=== PATIENT | male | born 1960 | race Two or more races ===

== ENCOUNTER 2021-03-11 09:08 | Day surgery (SDC) | payer MEDICAID, SELFPAY ==
[2021-03-11 11:27] VITALS: BP 173/109; PULSE 74; RESP 18; TEMP 36.4; O2SAT 99; BMI 30.5
[2021-03-11 12:50] VITALS: BP 161/102; PULSE 67; RESP 16; O2SAT 97
[2021-03-11 12:55] VITALS: BP 161/102; PULSE 67; RESP 16; O2SAT 97
== END 2021-03-11 12:55 | disposition home or self-care (01) ==
PROVIDERS: PCP Nurse Practitioner Family; Visit Provider Ophthalmology
PROC: (CPT 66821; principal; 2021-03-11 09:30)
DX: H26.492 Other secondary cataract, left eye (principal); Z96.1 Presence of intraocular lens; I10 Essential (primary) hypertension; I25.10 Atherosclerotic heart disease of native coronary artery without angina pectoris; Z95.818 Presence of other cardiac implants and grafts; Z79.82 Long term (current) use of aspirin; Z79.899 Other long term (current) drug therapy
CPT/HCPCS: 66821; U0003

== ENCOUNTER → 2021-08-26 14:37 | Outpatient (CLI) | payer MEDICAID, SELFPAY ==
[2021-08-26 15:09] LABS: Alanine Aminotransferase 26 U/L (12-78); Albumin Level 4.5 g/dl (3.5-5.0); Albumin/Globulin Ratio 1.5 (1.1-1.8); Alkaline Phosphatase 92 U/L (38-126); Aspartate Amino Transferase 35 U/L (17-59); Basophils % 0.6 % (0.1-2.0); Bilirubin,Total 0.6 mg/dl (0.2-1.3); Blood Urea Nitrogen 10 mg/dl (9-20); Calcium 9.2 mg/dl (8.4-10.2); Carbon Dioxide 25 mmol/L (22.0-30.0); Chloride 106 mmol/L (98-107); Chol/HDL Ratio 3.8 (1-3.5); Cholesterol 169 mg/dl (140-200); Eosinophils # 0.7 K/mm3 (0.0-0.4); Eosinophils % 13.2 % (0.1-12.0); Estimated Glomerular Filt Rate 115 ml/min (>60); GFR (African American) 139 ML/MIN (>60); Globulin 3.1 g/dL (1.3-3.2); Glucose 117 mg/dl (74-100); HDL Cholesterol 44 mg/dl (40-60); Hematocrit 45.8 % (42.0-52.0); Hemoglobin 15.7 g/dL (14.1-18.0); Lymphocytes # 1.3 K/mm3 (0.7-4.5); Mean Corpuscular HGB Conc 34.2 g/dL (31.8-35.4); Mean Corpuscular Hemoglobin 31.8 pg (27.0-31.2); Mean Platelet Volume 8.6 fl (7.4-10.4); Monocytes # 0.3 K/mm3 (0.1-1.0); Monocytes % 6.4 % (1.7-9.3); Neutrophils % 54.9 % (37.0-80.0); Platelet Count 287 K/mm3 (142-424); Red Blood Count 4.92 M/mm3 (4.60-6.20); Red Cell Distribution Width 13.1 % (11.5-17.5); Sodium 138 mmol/L (136-145); Total Protein,Serum 7.6 g/dl (6.3-8.2); Triglycerides 146 mg/dl (30-150); VLDL Cholesterol 29 mg/dL (0-40); White Blood Count 5.4 K/mm3 (4.8-10.8)
[2021-08-26 15:15] LABS: Direct LDL Cholesterol 98.43 mg/dL (100-129)
[2021-08-26 15:35] LABS: Prostate Specific Ag Screen 0.5 ng/ml (0.0-4.0); Thyroid Stimulating Hormone 0.61 uIU/mL (0.465-4.68)
== END ==
PROVIDERS: Visit Provider Family Medicine
DX: E03.9 Hypothyroidism, unspecified (principal); I25.10 Atherosclerotic heart disease of native coronary artery without angina pectoris
CPT/HCPCS: 80053; 80061; 84443; 85025; G0103

== ENCOUNTER 2023-10-22 22:58 | Outpatient (CLI) | payer MEDICAID, SELFPAY ==
[2023-10-22 18:09] LABS: Alanine Aminotransferase 30 U/L (12-78); Albumin Level 4.2 g/dl (3.5-5.0); Albumin/Globulin Ratio 1.4 (1.1-1.8); Alkaline Phosphatase 89 U/L (38-126); Amylase 81 U/L (30-110); Anion Gap 14.1 mEq/L (5-15); Aspartate Amino Transferase 29 U/L (17-59); Bilirubin,Direct 0.1 mg/dl (0.0-0.4); Bilirubin,Indirect 0.4 mg/dL (0.0-0.9); Bilirubin,Total 0.5 mg/dl (0.2-1.3); Bilirubin,Unconjugated 0.4 mg/dL (0.0-1.1); Blood Urea Nitrogen 12 mg/dl (9-20); Calcium 9.1 mg/dl (8.4-10.2); Carbon Dioxide 23 mmol/L (22.0-30.0); Chloride 105 mmol/L (98-107); Chol/HDL Ratio 4.8 (1-3.5); Cholesterol 174 mg/dl (140-200); Estimated Glomerular Filt Rate 98 ml/min (>60); GFR (African American) 118 ML/MIN (>60); Globulin 3.1 g/dL (1.3-3.2); Glucose 136 mg/dl (74-100); HDL Cholesterol 36 mg/dl (40-60); Lipase 129 U/L (23-300); Potassium 4.1 mmoL/L (3.5-5.1); Sodium 138 mmol/L (136-145); Total Protein,Serum 7.3 g/dl (6.3-8.2); Triglycerides 276 mg/dl (30-150); VLDL Cholesterol 55 mg/dL (0-40)
[2023-10-22 18:14] LABS: Basophils # 0.1 K/mm3 (0-0.2); Basophils % 0.8 % (0.1-2.0); Eosinophils # 0.8 K/mm3 (0.0-0.4); Eosinophils % 12.6 % (0.1-12.0); Lymphocytes # 1.6 K/mm3 (0.7-4.5); Mean Corpuscular HGB Conc 34.8 g/dL (31.8-35.4); Mean Corpuscular Hemoglobin 32.2 pg (27.0-31.2); Mean Corpuscular Volume 92.5 fl (80-94); Mean Platelet Volume 8.1 fl (7.4-10.4); Monocytes # 0.6 K/mm3 (0.1-1.0); Monocytes % 8.5 % (1.7-9.3); Neutrophils # 3.4 K/mm3 (1.8-7.8); Neutrophils % 53.1 % (37.0-80.0); Platelet Count 259 K/mm3 (142-424); Red Blood Count 4.98 M/mm3 (4.60-6.20); White Blood Count 6.4 K/mm3 (4.8-10.8)
[2023-10-22 18:20] LABS: Direct LDL Cholesterol 96.89 mg/dL (100-129)
[2023-10-22 18:25] LABS: 25-OH Vitamin D, Total 14.6 ng/mL (30-100)
[2023-10-22 18:35] LABS: Hemoglobin A1C 5.3 % (4.0-6.0)
[2023-10-22 18:40] LABS: Prostate Specific Ag Screen 0.8 ng/ml (0.0-4.0)
[2023-10-22 19:16] LABS: Vitamin B12 547 pg/mL (239-931)
[2023-10-22 19:17] LABS: Folate 7.38 ng/mL
[2023-10-28 00:09] LABS: Vitamin B1 154.7 nmol/L (66.5-200.0)
== END 2023-10-22 23:59 ==
LOC: LAB.DROPOF 22:59
PROVIDERS: PCP Family Medicine; Visit Provider Family Medicine
DX: R10.11 Right upper quadrant pain; R10.9 Unspecified abdominal pain; R14.0 Abdominal distension (gaseous); E55.9 Vitamin D deficiency, unspecified; K21.9 Gastro-esophageal reflux disease without esophagitis; E66.3 Overweight; Z68.27 Body mass index [BMI] 27.0-27.9, adult; Z79.899 Other long term (current) drug therapy; Z12.5 Encounter for screening for malignant neoplasm of prostate
CPT/HCPCS: 80053; 80061; 80076; 82150; 82306; 82607; 82746; 83036; 83690; 84425; 84443; 85025; G0103

== ENCOUNTER 2023-11-03 08:04 | Outpatient (CLI) | payer MEDICAID, SELFPAY ==
--- NOTE | 2023-11-03 08:04 | US_ITS ---
FINAL REPORT CLINICAL HISTORY: right side pain, pain after eatting greasy foods FINDINGS: RIGHT UPPER QUADRANT ULTRASOUND Sonographic images of the right upper quadrant were obtained. The pancreas is partially obscured. There is fatty infiltration of the liver. The gallbladder is partially collapsed without evidence of stones. The common duct measures 2 mm. Limited images of the right kidney are normal. IMPRESSION: Fatty liver. Partially collapsed gallbladder without evidence of stones. Reviewed, Interpreted and Dictated by Julian Villarreal III, MD Transcribed by Lianna Limon Authenticated and [facility]
== END 2023-11-03 23:59 ==
LOC: RAD 08:04
PROVIDERS: PCP Family Medicine; Visit Provider Family Medicine
DX: R10.11 Right upper quadrant pain (principal); R10.9 Unspecified abdominal pain
CPT/HCPCS: 76705

== ENCOUNTER 2024-03-20 10:11 | Outpatient (CLI) | payer MEDICAID, SELFPAY ==
[2024-03-20 11:57] LABS: Prostate Specific Ag, Diagnost 1.07 ng/ml (0.0-4.0)
== END 2024-03-20 23:59 | disposition home or self-care (01) ==
LOC: LAB 10:13
PROVIDERS: PCP Family Medicine; Visit Provider Family Medicine
DX: R39.198 Other difficulties with micturition (principal); R35.1 Nocturia
CPT/HCPCS: 36415; 84153

== ENCOUNTER 2025-05-17 16:12 | Outpatient (CLI) | payer MEDICAID, SELFPAY ==
[2025-05-17 21:47] LABS: Hematocrit 43.5 % (42.0-52.0); Hemoglobin 14.8 g/dL (14.1-18.0); Immature Granulocytes % 0.3 %; Mean Corpuscular HGB Conc 34.0 g/dL (31.8-35.4); Mean Corpuscular Hemoglobin 31.4 pg (27.0-31.2); Mean Corpuscular Volume 92.4 fl (80-94); Nucleated Red Blood Cells % 0 %; Platelet Count 280 K/mm3 (142-424); Red Blood Count 4.71 M/mm3 (4.60-6.20); Red Cell Distribution Width-SD 41.0 fL; White Blood Count 7.8 K/mm3 (4.8-10.8)
[2025-05-17 22:14] LABS: Albumin Level 4.4 g/dl (3.5-5.0); Chloride 106 mmol/L (98-107); Potassium 4.2 mmoL/L (3.5-5.1); Sodium 134 mmol/L (136-145)
[2025-05-17 22:17] LABS: Alanine Aminotransferase 23 U/L (12-78); Albumin/Globulin Ratio 1.5 (1.1-1.8); Alkaline Phosphatase 94 U/L (38-126); Anion Gap 10.2 mEq/L (5-15); Aspartate Amino Transferase 32 U/L (17-59); Bilirubin,Total 0.7 mg/dl (0.2-1.3); Blood Urea Nitrogen 15 mg/dl (9-20); Calcium 9.2 mg/dl (8.4-10.2); Carbon Dioxide 22 mmol/L (22.0-30.0); Cholesterol 190 mg/dl (140-200); Creatinine,Serum 0.80 mg/dl (0.66-1.25); Estimated Glomerular Filt Rate 97 ml/min (>60); GFR (African American) 117 ML/MIN (>60); Globulin 3.0 g/dL (1.3-3.2); Glucose 171 mg/dl (74-100); HDL Cholesterol 52 mg/dl (40-60); Total Protein,Serum 7.4 g/dl (6.3-8.2); Triglycerides 166 mg/dl (30-150)
[2025-05-17 22:30] LABS: Hemoglobin A1C 5.5 % (4.0-6.0)
[2025-05-17 22:48] LABS: Thyroid Stimulating Hormone 1.09 uIU/mL (0.465-4.68)
== END 2025-05-17 23:59 | disposition home or self-care (01) ==
LOC: LAB.DROPOF 05-18 12:31
PROVIDERS: PCP Family Medicine; Visit Provider Family Medicine
DX: Z12.5 Encounter for screening for malignant neoplasm of prostate (principal); I10 Essential (primary) hypertension; E78.5 Hyperlipidemia, unspecified; E03.9 Hypothyroidism, unspecified; R73.09 Other abnormal glucose
CPT/HCPCS: 80053; 80061; 83036; 84443; 85025; G0103